=== PATIENT | male | born 1970 | race Caucasian/White ===

== ENCOUNTER → 2023-11-08 | Outpatient (REF) | payer BC ==
[~2023-11-08] MED LIST: FOSAMAX PO; NEBUPENT F300 MG/VIA IH; PENICILLIN-VK500 M1 PO; PREDNISONE10 M1 PO; SPRYCEL20 MG PO; VIBRAMYCIN100 MG PO; ZOVIRAX400 MG PO; ZYRTEC10 MG PO
== END ==
LOC: LAB 14:41
DX: Z20.822 Contact with and (suspected) exposure to COVID-19 (principal)